=== PATIENT | female | born 1965 | race Caucasian/White ===

== ENCOUNTER 2024-04-06 09:48 | Outpatient (CLI) | payer BC | END 2024-04-06 09:49 | disposition home or self-care (01) | LOC: BICMAMMO 09:48 | PROVIDERS: ATTEND Physician Assistant | DX: R92.8 Other abnormal and inconclusive findings on diagnostic imaging of breast (principal); N63.23 Unspecified lump in the left breast, lower outer quadrant | CPT/HCPCS: 76642; 77066; G0279 ==

== ENCOUNTER → 2024-04-16 | Day surgery (SDC) | payer BC | LOC: BICULT 12:08 | PROVIDERS: ATTEND Physician Assistant | PROC: 0HB5XZX Excision of Chest Skin, External Approach, Diagnostic (ICD-10-PCS; principal; 2024-04-16) | DX: N60.02 Solitary cyst of left breast (principal); R92.8 Other abnormal and inconclusive findings on diagnostic imaging of breast | CPT/HCPCS: 19083; 88305 ==

== ENCOUNTER → 2024-04-30 | Day surgery (SDC) | payer BC | LOC: MAMMO 06:54 | PROVIDERS: ATTEND Physician Assistant | PROC: 0HB5XZX Excision of Chest Skin, External Approach, Diagnostic (ICD-10-PCS; principal; 2024-04-30) | DX: D05.11 Intraductal carcinoma in situ of right breast (principal); R92.0 Mammographic microcalcification found on diagnostic imaging of breast; N60.81 Other benign mammary dysplasias of right breast | CPT/HCPCS: 19081; 76098; 88305; A4648 ==